=== PATIENT | female | born 1995 | race Caucasian/White ===

== ENCOUNTER 2019-01-31 08:22 | Day surgery (SDC) | payer BC ==
[2019-01-31 08:59] VITALS: BMI 41.5
[2019-01-31] MEDS ORDERED: Butorphanol Tartrate 1 MG/ML VIAL IM PRN (09:15)
[2019-01-31] MEDS ORDERED: hydrALAZINE 20 MG/ML VIAL SLOW IVP PRN (09:15)
[2019-01-31] MEDS ORDERED: Promethazine HCl 25 MG/ML VIAL IM/IV PRN (09:16)
--- NOTE | 2019-01-31 09:24 | PDOC.LDHP ---
Labor and Delivery H&P HPI: Patient of Dr busch Seen by me at bedside at 0915 23 yo [id number] at 37 weeks with EDC 02/20...states CTX every 5-10 minutes. No LOF, good FM, no SCHMITZ, good fm. Last delivery was 2015, term. HX PIH with first delivery. Not on aspirin Review of Systems: negative after complete list completed Current gestational age (weeks): 37 Due date: 02/20/19 Dating criteria: last menstrual period Grav: 4 Para: 1 OB History Details: x 1: one SAB and one EAB; x 1 Current complications: none Abnormal US findings: No Past Medical History: Past HX anxiety...not on meds Current medications: none Allergies/Adverse Reactions: Allergies Allergy/AdvReac Type Severity Reaction Status Date / Time No Known Allergies Allergy Verified 01/31/19 08:57 Social history: none - Physical Exam Vital signs reviewed and normal: yes (117/70s 106 afebrile) General: NAD Heart: RRR Lungs: CTAB Abdomen: gravid Extremeties: no edema FHT: category 1 [place] contractions every: irregular withour pattern - Vaginal Exam cm dilated: 1 Effacement: 75% Station: -1 - Assessment Latent labor at early term...1cm..GBS collected last week and waiting results in clinic - Plan Plan: observation in L&D (dont suspect true labor at this time, BUT still will do routine 2 hr obs...BPs now are ok at this time)
== END 2019-01-31 11:11 | disposition home or self-care (01) ==
LOC: L&D/OP 08:22
PROVIDERS: ATTEND Student in an Organized Health Care Education/Training Program
DX: O47.1 False labor at or after 37 completed weeks of gestation (principal); Z3A.37 37 weeks gestation of pregnancy

== ENCOUNTER 2019-02-13 05:30 | Inpatient (IN) | payer BC ==
[2019-02-13 06:13] VITALS: BMI 42.0
[2019-02-13] MEDS: Lactated Ringer's 1,000 ML IV SCH ×2 (06:50→22:47)
[2019-02-13] MEDS ORDERED: Misoprostol 200 MCG TAB PR PRN (06:56)
[2019-02-13] MEDS ORDERED: NS w/ Oxytocin 10 units 500 ML IV SCH (06:56)
[2019-02-13] MEDS ORDERED: Promethazine HCl 25 MG/ML VIAL IM PRN ×3 (06:56→19:30)
[2019-02-13] MEDS ORDERED: NS / Oxytocin 40 units/1000ml 1,000 ML IV PRN (06:56)
[2019-02-13] MEDS ORDERED: Acetaminophen 500 MG TAB PO PRN (06:56)
[2019-02-13] MEDS ORDERED: Ondansetron PF 4 MG/2 ML Vial IVP PRN ×3 (06:56→19:30)
[2019-02-13] MEDS ORDERED: hydrALAZINE 20 MG/ML VIAL SLOW IVP PRN ×2 (06:56→19:30)
[2019-02-13] MEDS ORDERED: Ibuprofen 800 MG TAB PO PRN (06:56)
[2019-02-13] MEDS ORDERED: Diphenoxylate HCl/Atropine Tablet PO PRN (06:56)
[2019-02-13] MEDS ORDERED: Lidocaine 1% (PF) 30 ML VIAL SC PRN (06:56)
[2019-02-13] MEDS ORDERED: Methylergonovine 0.2 MG/ML VIAL IM PRN (06:56)
[2019-02-13] MEDS ORDERED: Carboprost 250 MCG/ML AMP IM PRN (06:56)
[2019-02-13] MEDS ORDERED: HYDROcodone/Acetaminophen 5/325 mg Tablet PO PRN (06:56)
[2019-02-13 07:16] LABS: Hemoglobin 10.8 g/dL (12.0-16.0); Mean Corpuscular HGB CONC 33.8 g/dL (32.0-36.0); Mean Corpuscular Hemoglobin 28.7 pg (27.0-31.0); Mean Corpuscular Volume 84.9 fL (78.0-98.0); Mean Platelet Volume 8.5 fL (7.4-10.4); Platelet Count 284 thou/uL (130-400); RBC Distribution Width 12.9 % (11.5-14.5); Red Blood Cell (RBC) Count 3.77 mill/uL (4.20-5.40); White Blood Cell (WBC) Count 9.4 thou/uL (4.8-10.8)
[2019-02-13 07:50] LABS: HBSAg Index 0.15 S/CO (0-0.99); Hep B Surf Ag Non-Reactive S/CO (NonReactive); Syphilis Antibody Nonreactive (Nonreactive); Syphilis Antibody Index 0.05 S/CO (<1.00 Non-Reactive)
--- NOTE | 2019-02-13 08:46 | PDOC.LDHP ---
Labor and Delivery H&P Chief complaint: scheduled induction HPI: 23yo A2 at 39w by LMP here for elective IOL. No complaints, good FM. No PIH sx. Current gestational age (weeks): 39 Due date: 02/20/19 Dating criteria: last menstrual period Grav: 4 Para: 1 Current complications: none Abnormal US findings: No Past Medical History: none Current medications: pre- vitamins Previous surgical history: dilation and curettage Allergies/Adverse Reactions: Allergies Allergy/AdvReac Type Severity Reaction Status Date / Time No Known Allergies Allergy Verified 02/13/19 06:10 Social history: none - Physical Exam Vital signs reviewed and normal: yes General: NAD Heart: RRR Lungs: CTAB Abdomen: gravid Extremeties: no edema FHT: category 1 [place] contractions every: none - Vaginal Exam cm dilated: 3 Effacement: 50% Station: -3 (AROM clear) - OB Labs Blood type: O RH: positive Antibody Screen: negative HIV: negative RPR: negative HEPSAg: negative 1 hour GCT: negative GBS: negative Urine drug screen: negative Rubella: immune - Assessment L&D Assessment: elective induction at term - Plan Plan: admit to L&D, labor augmentation if indicated, informed consent obtained, anesthesia consult for pain management
[2019-02-13] MEDS: Butorphanol Tartrate 1 MG/ML VIAL SLOW IVP PRN ×2 (10:01→11:52)
[2019-02-13] MEDS ORDERED: FLU VACC QS2019-20(6MOS UP)/PF 60 MCG/0.5 ML SYRINGE IM ONE (10:15)
[2019-02-13] MEDS ORDERED: Fentanyl 4 mcg/Bup 0.1% Cadd 100 ML ONE (13:10)
[2019-02-13] MEDS ORDERED: Bupivacaine 0.25% HCL 30 ML VIAL ONE (15:00)
[2019-02-13] MEDS ORDERED: ePHEDrine/0.9% NaCl/PF SYRINGE 50 mg/10 ml SLOW IVP PRN (15:37)
[2019-02-13] MEDS ORDERED: Acetaminophen 325 MG TAB PO PRN (15:37)
[2019-02-13] MEDS ORDERED: diphenhydrAMINE 50 MG/ML VIAL IVP PRN (15:37)
[2019-02-13] MEDS ORDERED: Naloxone HCl 0.4 mg/ml Vial IVP PRN ×2 (15:37)
[2019-02-13] MEDS ORDERED: Lactated Ringer's 500 ML IV PRN (15:37)
[2019-02-13] MEDS ORDERED: Communication Order-Pharmacy FS SCH (15:45)
[2019-02-13] MEDS ORDERED: Fentanyl 4 mcg/Bupivacaine 0.1% Cassette 100 ML EPIDURAL SCH (15:45)
--- NOTE | 2019-02-13 16:58 | PDOC.LDPN ---
Labor & Delivery Progress Note - Subjective Subjective: comfortable - Objective Vital signs reviewed and normal: yes General: NAD Uterine fundus: non tender Dilation: 8 Effacement: 90% Station: -1 FHT: category 1 [place] contractions every: 2-4min IUPC placed: yes Plan: pitocin for augmentation
--- NOTE | 2019-02-13 18:54 | PDOC.OPDEL ---
OB Operative/Delivery Note Delivery Dr/Surgeon: Sherlyn Assist: n/a Pre-Delivery Diagnosis: elective induction Procedure/Post Delivery Dx: spontaneous vaginal delivery Weeks gestation: 39 Anesthesia: epidural - Findings A Sex: male - 1 min: 9 - 5 min: 9 - Additional Findings/Plan Placenta delivered: spontaneous Repaired Obstetrical Laceration: none Estimated blood loss: 75cc Post delivery plan: routine recovery
[2019-02-13] MEDS ORDERED: diphenhydrAMINE 25 MG CAP PO PRN (19:30)
[2019-02-13] MEDS ORDERED: Lanolin Ointment 7 GM TUBE TOP PRN (19:30)
[2019-02-13] MEDS ORDERED: Preparation H Ointment 28 GM TUBE PR PRN (19:30)
[2019-02-13] MEDS ORDERED: NS / Oxytocin 40 units/1000ml 1,000 ML IV SCH (19:30)
[2019-02-13] MEDS ORDERED: Bisacodyl 10 MG SUPP PR PRN (19:30)
[2019-02-13] MEDS ORDERED: Milk Of Magnesia 30 ML UDCUP PO PRN (19:30)
[2019-02-13] MEDS ORDERED: Benzocaine-Menthol 82.5 ML CAN TOP PRN (19:30)
[2019-02-13] MEDS ORDERED: NS / Oxytocin 40 units/1000ml 1,000 ML ONE (20:18)
[2019-02-13] MEDS: Docusate Calcium (SURFAK) 240 MG CAP PO SCH (22:47)
[2019-02-13] MEDS: Ibuprofen 800 MG TAB PO SCH (22:47)
[2019-02-14] MEDS: HYDROcodone/Acetaminophen 5/325 mg Tablet PO PRN ×5 (02:19→22:00)
[2019-02-14] MEDS: Ibuprofen 800 MG TAB PO SCH ×3 (04:32→21:35)
[2019-02-14] MEDS: Docusate Calcium (SURFAK) 240 MG CAP PO SCH ×2 (08:08→21:35)
[2019-02-14] MEDS: Prenatal Vitamin 1 TAB PO SCH (08:08)
[2019-02-14] MEDS: Ferrous Sulfate 325 MG TAB PO SCH ×2 (08:11→16:51)
--- NOTE | 2019-02-14 08:42 | PDOC.PP ---
Post Progress Note Post Day #: 1 Subjective: Pt is doing well PPD1. She has mild abdominal cramping with Bf but otherwise has no pain. Minimal lochia. She is eating and drinking normally. She is urinating without difficulty. No leg pain or swelling. She is breast feeding and baby is latching well. PO intake tolerated: yes Flatus: yes Ambulation: yes Vital Signs (12 hours) Temp Pulse Resp BP Pulse Ox 02/14/19 04:30 97.9 F 84 16 94/53 L 02/14/19 00:00 98.1 F 101 H 16 107/52 L 02/13/19 21:20 98.2 F 109 H 16 123/58 L 96 Weight Weight 230 lb - Physical Examination General: NAD Respiratory: non-labored breathing Abdominal: + bowel sounds, lochia, no distention, appropriately TTP Fundus firm & at: 2 fingers below umbilicus Extremities: negative homans (B) Skin: no rash Neurological: no gross focal deficits Psychiatric: A&Ox3 Result Diagrams: 02/13/19 06:58 Additional Labs: Post Labs Blood Type O POSITIVE 02/13/19 07:00 Hep Bs Antigen Non-Reactive S/CO (NonReactive) 02/13/19 06:58 (1) Term delivered Code(s): O80 - ENCOUNTER FOR FULL-TERM UNCOMPLICATED DELIVERY Status: Acute - Assessment/Plan PT doing well PPD 1. Minimal lochia. No pain. Baby breast feeding well. H&H are stable. Plan to discharge tomorrow when baby is discharged.
[2019-02-14] MEDS ORDERED: Adacel (T-DAP) 0.5 ML SYRINGE IM ONE (09:00)
[2019-02-15] MEDS: HYDROcodone/Acetaminophen 5/325 mg Tablet PO PRN ×3 (02:59→11:56)
[2019-02-15] MEDS: Ibuprofen 800 MG TAB PO SCH ×2 (05:57→13:50)
[2019-02-15] MEDS: Prenatal Vitamin 1 TAB PO SCH (07:39)
[2019-02-15] MEDS: Docusate Calcium (SURFAK) 240 MG CAP PO SCH (07:40)
--- NOTE | 2019-02-15 08:10 | PDOC.PP ---
Post Progress Note Post Day #: 2 PO intake tolerated: yes Flatus: yes Ambulation: yes Weight Weight 230 lb - Physical Examination General: NAD Respiratory: non-labored breathing Abdominal: no distention, appropriately TTP Fundus firm & at: umb-2 Skin: no rash Neurological: no gross focal deficits Psychiatric: normal affect Result Diagrams: 02/13/19 06:58 Additional Labs: Post Labs Blood Type O POSITIVE 02/13/19 07:00 Hep Bs Antigen Non-Reactive S/CO (NonReactive) 02/13/19 06:58 - Assessment/Plan PPD2 s/p TSVD VSSAF Doing well, lochia < menses, pain controlled Rh pos RImm DC home FU 6w
[2019-02-15 08:18] VITALS: BP 136/69; TEMP 98.4
[2019-02-15] MEDS: Ferrous Sulfate 325 MG TAB PO SCH (09:24)
== END 2019-02-15 14:05 | disposition home or self-care (01) | DRG 807 ==
LOC: L&D 05:43 → 3SW 22:17
PROVIDERS: ADMIT Student in an Organized Health Care Education/Training Program; ATTEND Student in an Organized Health Care Education/Training Program
PROC: 10E0XZZ Delivery of Products of Conception, External Approach (ICD-10-PCS; principal; 2019-02-13)
PROC: 10907ZC Drainage of Amniotic Fluid, Therapeutic from Products of Conception, Via Natural or Artificial Opening (ICD-10-PCS; 2019-02-13)
PROC: 3E033VJ Introduction of Other Hormone into Peripheral Vein, Percutaneous Approach (ICD-10-PCS; 2019-02-13)
PROC: 10H07YZ Insertion of Other Device into Products of Conception, Via Natural or Artificial Opening (ICD-10-PCS; 2019-02-13)
DX: O80 Encounter for full-term uncomplicated delivery (principal); Z37.0 Single live birth; Z3A.39 39 weeks gestation of pregnancy
CPT/HCPCS: 36415; 51702; 85027; 86780; 86850; 86900; 86901; 87340; J0595; J2001; J2590; S0020